=== PATIENT | female | born 1955 | race Caucasian/White ===

== ENCOUNTER 2018-11-30 10:35 | Inpatient (IN) | payer OTHER ==
[~2018-11-30] VITALS: Ht 165.1 cm; Wt 61.4 kg
[2018-11-30 11:36] LABS: Source, Urine Catheter
[2018-11-30 11:39] LABS: Appearance, Urine Cloudy (Clear); Blood, Urine 4+ (Neg); Color, Urine Yellow (P-Yellow); Glucose Qualitative, Urine Neg (Neg); Ketones, Urine 4+ (Neg); Leukocyte Esterase, Urine 1+ (Neg); Nitrite, Urine Neg (Neg); Protein, Urine 2+ (Neg); Specific Gravity, Urine 1.025 (1.003-1.022); Urobilinogen, Urine 3+ (Normal)
[2018-11-30 11:58] LABS: BASOPHILS ABSOLUTE AUTO 0.02 K/mm3 (0.00-0.23); BASOPHILS PERCENT AUTO 0 % (0-2); EOSINOPHILS PERCENT AUTO 0 % (0-6); Hematocrit 39.1 % (33.0-51.0); Hemoglobin 13.1 g/dL (11.5-16.0); IMMATURE GRAN ABSOLUTE AUTO 0.04 K/mm3 (0.00-0.10); IMMATURE GRAN PERCENT AUTO 0 % (0-1); LYMPHOCYTES ABSOLUTE AUTO 0.66 K/mm3 (0.84-5.20); LYMPHOCYTES PERCENT AUTO 7 % (21-46); MONOCYTES ABSOLUTE AUTO 0.62 K/mm3 (0.16-1.47); MONOCYTES PERCENT AUTO 7 % (4-13); Mean Corpuscular HGB 29.4 pg (26.0-34.0); Mean Corpuscular HGB Conc 33.5 g/dL (31.5-36.5); Mean Corpuscular Volume 88 fL (80-100); Mean Platelet Volume 11.7 fL (9.1-12.4); NEUTROPHILS ABSOLUTE AUTO 8.04 K/mm3 (1.96-9.15); NEUTROPHILS PERCENT AUTO 86 % (41-73); Platelet Count 214 K/mm3 (150-400); RDW Coefficient Variation 13.2 % (11.7-14.2); RDW Standard Deviation 42.5 fL (35.1-46.3); Red Blood Cell Count 4.46 M/mm3 (3.80-5.20); White Blood Cell Count 9.38 K/mm3 (4.00-11.30)
[2018-11-30 12:01] LABS: Bilirubin, Urine 1+ (Neg)
[2018-11-30 12:02] LABS: Alanine Aminotransfer (ALT/SGP 42 U/L (12-78); Albumin, Blood 3.3 g/dL (3.4-5.0); Albumin/Globulin Ratio 0.8 (0.8-1.8); Alk Phos 72 U/L (50-136); Anion Gap 9 mmol/L (6-16); Aspartate Aminotrans (AST/SGOT 94 U/L (12-37); Blood Urea Nitrogen 15 mg/dL (8-24); Bun/Creatinine Ratio 18.6 (12.0-20.0); CO2, Blood 29 mmol/L (21-32); Calcium, Blood 9.1 mg/dL (8.5-10.1); Chloride, Blood 102 mmol/L (98-108); Creatinine, Blood 0.81 mg/dL (0.40-1.00); Globulin, Blood 4.1 g/dL (2.2-4.0); Glomerular Filtration Rate >60 (60-); Glucose, Blood 134 mg/dL (70-99); Potassium, Blood 2.8 mmol/L (3.5-5.5); Sodium, Blood 140 mmol/L (136-145); Total Protein, Blood 7.4 g/dL (6.4-8.2)
[2018-11-30 12:03] LABS: Bacteria Few /hpf; Squamous Epithelial Cells Few /hpf (Few)
[2018-11-30 12:04] LABS: Calcium Oxalate Crystals Few /hpf; Mucus Heavy (0-Heavy)
[2018-11-30 14:14] LABS: C-REACTIVE PROTEIN, EXT RANGE 9.67 mg/dL (0.000-0.300); Magnesium, Blood 2.2 mg/dL (1.6-2.4)
[2018-11-30 14:35] LABS: Thyroid Stimulating Hormone 2.78 uIU/mL (0.360-4.800)
--- NOTE | 2018-11-30 17:35 | NUR ---
PT AOX1 RESPONDING BY SMILING BIG AND LAUGHING LIKE A CHILD. WORDS ARE GARBLED AND MINIMAL. PT HAS BRUISING OVER BODY MOST LIKELY RELATED TO FALLS AT HOME PER . UNABLE TO REALLY ASSESS MOVEMENT PT DOES NOT REALLY RESPOND IF ASKED TO RAISE AND ARM OR LEG. PT DRIFTS OF TO SLEEP SMALL NAPS. SHE ALSO ONCE IN AWHILE REACHES UP IF SHE IS DOING SOMETHING ABOVE HER. PT RESTING AT THIS TIME BED ALARM IN PLACE.
--- NOTE | 2018-12-01 04:29 | NUR ---
SHIFT SUMMARY PT ALERT TO SELF, SLEPT WELL. INCONTINENT OF URINE. IVF'S INFUSING PER PUMP WITHOUT DIFFICULTY. NO SIGNS OF PAIN NOTED. WILL CONTINUE TO MONITOR.
[2018-12-01 05:07] LABS: BASOPHILS ABSOLUTE AUTO 0.03 K/mm3 (0.00-0.23); BASOPHILS PERCENT AUTO 0 % (0-2); EOSINOPHILS ABSOLUTE AUTO 0.07 K/mm3 (0.00-0.68); EOSINOPHILS PERCENT AUTO 1 % (0-6); Hematocrit 34.5 % (33.0-51.0); Hemoglobin 11.6 g/dL (11.5-16.0); IMMATURE GRAN ABSOLUTE AUTO 0.01 K/mm3 (0.00-0.10); IMMATURE GRAN PERCENT AUTO 0 % (0-1); LYMPHOCYTES ABSOLUTE AUTO 1.51 K/mm3 (0.84-5.20); LYMPHOCYTES PERCENT AUTO 17 % (21-46); MONOCYTES ABSOLUTE AUTO 0.77 K/mm3 (0.16-1.47); MONOCYTES PERCENT AUTO 9 % (4-13); Mean Corpuscular HGB 29.5 pg (26.0-34.0); Mean Corpuscular HGB Conc 33.6 g/dL (31.5-36.5); Mean Corpuscular Volume 88 fL (80-100); Mean Platelet Volume 11.4 fL (9.1-12.4); NEUTROPHILS PERCENT AUTO 73 % (41-73); Platelet Count 194 K/mm3 (150-400); RDW Coefficient Variation 13.2 % (11.7-14.2); RDW Standard Deviation 42.7 fL (35.1-46.3); Red Blood Cell Count 3.93 M/mm3 (3.80-5.20); White Blood Cell Count 8.79 K/mm3 (4.00-11.30)
[2018-12-01 05:37] LABS: Alanine Aminotransfer (ALT/SGP 38 U/L (12-78); Albumin, Blood 2.7 g/dL (3.4-5.0); Albumin/Globulin Ratio 0.8 (0.8-1.8); Alk Phos 60 U/L (50-136); Anion Gap 11 mmol/L (6-16); Aspartate Aminotrans (AST/SGOT 78 U/L (12-37); Bilirubin, Total 1.1 mg/dL (0.1-1.0); Blood Urea Nitrogen 8 mg/dL (8-24); CO2, Blood 25 mmol/L (21-32); Calcium, Blood 7.9 mg/dL (8.5-10.1); Chloride, Blood 107 mmol/L (98-108); Creatinine, Blood 0.66 mg/dL (0.40-1.00); Globulin, Blood 3.3 g/dL (2.2-4.0); Glomerular Filtration Rate >60 (60-); Glucose, Blood 88 mg/dL (70-99); Potassium, Blood 2.9 mmol/L (3.5-5.5); Sodium, Blood 143 mmol/L (136-145)
--- NOTE | 2018-12-01 09:32 | NUR ---
DC IV THE 18G IV I DC'D WAS IN THE JERI NOT THE LEFT.
--- NOTE | 2018-12-01 18:02 | NUR ---
AT BEDSIDE FOR MOST OF THIS SHIFT. PATIENT IS ORIENTED TO SELF AND FAMILY ONLY, CHILD LIKE AND GIGGLES WHEN ASKED QUESTIONS. UNABLE TO FOLLOW COMMANDS. MULTIPLE BRUISES TO ALL EXTREMITIES FROM RECENT FALLS. POWERGLIDE PLACED TODAY IN L UPPER EXTREMITIY. NS WITH 20K RUNNING AT 125ML/HR. ANXIOUS AND TEARFUL THIS EVENING AFTER FAMILY LEFT. VSS, ON RA. INCONTINENT OF URINE AND BOWEL. PLAN TO MOVE PATIENT TO ROOM 350, MESSAGE LEFT ON ANSWERING MACHINE FOR ECHO.
--- NOTE | 2018-12-02 01:15 | NUR ---
UPON TURNING AND CHANGING PT SHE BECAME ANXIOUS AND TEARFUL SAYING OUCH. SHE WAS NOTED TO BE HOLDING HER L.FOREARM AND ELBOW BUT ALSO SQUEALED WHEN STAFF TOUCHED HER L.HIP WHICH WAS NOTABLY BRUISED. ALERTED AND FENTANYL 25-50 MCQ Q4H PRN RX'D WELL XRAYS OF L.HIP, L.FA AND L.ELBOW. PLAN TO MEDICATE PRN.
--- NOTE | 2018-12-02 02:30 | NUR ---
ATTEMPTED TO GIVE PT PRN PAIN MEDS A FEW TIMES BUT SHE HAS BEEN SLEEPING SOUNDLY, SNORING AND APPEARS COMFORTABLE W/O S/S DISTRES. PT PREVIOUSLY WAS AWAKE AND WHIMPERING BUT WOULD DENY NEEDS AND GIGGLE WHEN STAFF WOULD INQUIRE HOW SHE WAS DOING. SHE SEEMS TO SLEEP BETTER ON HER R.SIDE WHICH LEADS ME TO BELIEVE L.SIDE CAUSES HER DISTRESS. XRAYS TO BE DONE THIS AM.
--- NOTE | 2018-12-02 05:08 | NUR ---
SUMMARY: PT CONFUSED, MOSTLY NONVERBAL, ANSWERS SOME YES/NO Q'S AND SAYS SOME SHORT PHRASES IE "THANKYOU". SHE OCCASIONALLY WAS HEARD WHIMPERING AND SOUNDED TEARFUL BUT PT WOULD GIGGLE AND DENY NEEDS UPON STAFF ENTERING ROOM. MOUTH CARE PROVIDED AND TURN SCHEDULE MAINTAINED. PT INCONTINENT OF URINE AND SMALL BM THIS SHIFT W/ATTENDS CHANGED PRN. PT NOTED TO BE VERY STIFF/RIGID AND SEEMED RESISTANT AND PAINFUL WHEN POSITIONED ON HER L.SIDE. BRUISES NOTED AND PT GRASPED L.ELBOW/FOREARM WHENEVER TURNED THAT DIRECTION. XRAYS HAVE BEEN RX'D OF THE L.HIP, ELBOW AND FOREARM THIS AM RESULT. PRN FENTANYL WAS ALSO RX'D BUT PT HAS NOT REQUIRED IT D/T NOW SLEEPING COMFORTABLY W/O S/S DISTRESS. STAFF HELD 2100 ZYPREXA D/T HAVING RECIEVED 1ST DOSE AT 1912 AND HASN'T NEEDED IT SINCE. NS W/20 KCL INFUSES AT 125 ML/HR TO [place] POWERGLIDE. JERI CONT'S SWOLLEN FROM IV INFILRATION ON DAY SHIFT. NO ACUTE CHANGES, VSS/AFEBRILE. WILL MONITOR AND REPORT TO DAY RN.
--- NOTE | 2018-12-02 08:44 | NUR ---
PATIENT DID NOT EAT BREAKFAST THIS SHIFT DUE TO BEING NPO AT THIS TIME.
--- NOTE | 2018-12-02 08:58 | NUR ---
PT CRYING THIS AM THE PT IS AWAKE CRYING MOANS IF SHE IS IN PAIN, GAVE FENTENYL 25MG FOR PAIN, PT IS NPO THIS AM AWAITING SWALLOW EVAL, MOUTH CARE GIVEN WITH AM MED
--- NOTE | 2018-12-02 15:55 | NUR ---
PT ALERT CONFUSED, BED REST AT THIS TIME, THE PT THIS AM WAS CRYING AND MOANING THOUGH SHE WAS IN PAIN, WHEN THE PT WAS TRANSFERED FROM [facility] TO [facility] THIS AM FOR X-RAY THE PT GRIMICED AND MOANED IF SHE WAS IN PAIN, AFTER COMING BACK TO THE ROOM THE PT STARTED TO CRY HYSTERICALLY, FENTENLY 25 MCG AND THE SCHEDULED ZYPREXA WERE GIVEN THE PT SEEMED TO CALM AND THEN FALL ASLEEP, THE PT REMAIND DROWSY T/O THE DAY, MOUTH CARE WAS GIVEN T/O THE DAY THE PT IS A MOUTH BREATHER AND HER MOUTH WAS VERY DRY, 1300 AND 1700 ZYPREXA HELD DUE TO DROWSINESS, CALL LIGHT IN REACH, PT WAS CHANGED AND REPOSITIONED T/O THE DAY
--- NOTE | 2018-12-02 17:36 | NUR ---
PATIENT DID NOT EAT DINNER THIS SHIFT DUE TO BEING NPO AT THIS TIME.
--- NOTE | 2018-12-03 05:41 | NUR ---
SUMMARY: PT CONTINUED DROWSY AND SLEPT MOST OF SHIFT. HS SHELTON HELD D/T NOT APPEARING TO NEED MED. SHE HAS CHILDLIKE AFFECT W/LIMITED INTERACTION. SHE ANSWERS SOME YES/NO Q'S, HAS DENIED PAIN AND OCCASIONALLY GIGGLES IN RESPONSE TO QUESTIONS. SHE HAS WOKE UP A BIT MORE THIS MORNING AND SPECIFIED HER MOUTH FELT DRY. SHE IS A MOUTH BREATHER AND HAS SNORED RESPS AT TIMES. ORAL CARE PROVIDED T/O NOCTE. TURN SCHEDULE MAINTAINED AND PT HAD FREQ EPISODES OF URINARY INCONTINENCE W/SATURATION OF BED AND LINEN/ATTENDS CHANGED PRN. BUTTOCKS REMAINS PINK W/OPEN AREAS OF SKIN WEAR BLISTERS HAVE POPPED. CREAM APPLIED AND ATTEMPTED TO KEEP PT DRY. NO ACUTE CHNGES, VSS/AFEBRILE. WILL MONITOR AND REPORT TO DAY RN.
[2018-12-03 06:49] LABS: Anion Gap 10 mmol/L (6-16); Blood Urea Nitrogen 4 mg/dL (8-24); Bun/Creatinine Ratio 6.7 (12.0-20.0); CO2, Blood 27 mmol/L (21-32); Calcium, Blood 8.1 mg/dL (8.5-10.1); Chloride, Blood 103 mmol/L (98-108); Creatinine, Blood 0.59 mg/dL (0.40-1.00); Glomerular Filtration Rate >60 (60-); Glucose, Blood 92 mg/dL (70-99); Potassium, Blood 3.2 mmol/L (3.5-5.5); Sodium, Blood 140 mmol/L (136-145)
[2018-12-03 09:21] LABS: RPR Non-reactive (Nonreactive)
[2018-12-03 11:28] LABS: Antinuclear Antibody Screen Negative (Negative)
[2018-12-03 12:08] LABS: ANTI-DSDNA ANTIBODIES <1 IU/mL (0-9); RNP ANTIBODIES <0.2 AI (0.0-0.9); SJOGREN'S ANTI-SS-A <0.2 AI (0.0-0.9); SJOGREN'S ANTI-SS-B <0.2 AI (0.0-0.9); SMITH ANTIBODIES <0.2 AI (0.0-0.9)
--- NOTE | 2018-12-03 19:12 | NUR ---
NO ACUTE CHANGES NOTED THIS SHIFT. PT AWAKE THIS MORNING WHEN AT BEDSIDE AND SHE DOES ATTEMPT TO SPEAK WITH HIM. SPEECH VERY SLURRED AND DIFFICULT TO UNDERSTAND. SHE IS FILIBERTO TO ANSWER YES AND NO QUESTIONS. WILL ONTINUE TO MONITOR AND REPORT TO ONCOMING RN
--- NOTE | 2018-12-04 05:35 | NUR ---
VSS, ALERT, ORIENTED TO SELF, GIBBERISH MOST OF THE TIME BUT CAN SAY "YES"/"NO", EXCORIATED R BUTT CHEEK, MEPLEX PLACED LAST NOC, POWERGLIDE L UA, NS w/20 MEQ K AT 125 ML/HR, INCONT, TURN Q 2 HRS, BRUISES FROM FREQ FALLS, COMBATIVE WITH CAREGIVERS AT TIMES, RIGID ARMS ARE TRYING TO BECOME CONTRACTED, PLACEMENT ISSUE
--- NOTE | 2018-12-04 11:31 | NUR ---
ORAL CARE COMPLETED, PT TOLERATED WELL
[2018-12-04 13:08] LABS: COMPLEMENT C3, SERUM 74 mg/dL (82-167); COMPLEMENT C4, SERUM 14 mg/dL (14-44)
--- NOTE | 2018-12-04 19:30 | NUR ---
PT REMAINS MOSTLY NON VERBAL, SPEECH EXTREMELY DIFFICULT TO UNDERSTAND WHEN SHE DOES ATTEMPT TO TALK. PT TURNED FROM SIDE TO SIDE Q2 HOURS, SQUIRMS AND MOVES OFF HER SIDE AND RETURNS TO HER BACK. NO S/S OF PAIN WHEN RESTING. AT BEDSIDE THIS AFTERNOON AND SPENT TIME TALKING WITH DR RAMON. PALLIATIVE CARE WISHES TO BE NOTIFIED WHEN HE COMES IN TOMORROW. WILL CONTINUE TO MONITOR AND REPORT TO ONCOMING RN.
--- NOTE | 2018-12-05 03:05 | NUR ---
63 YEAR OLD FAMALE ADMITTED WITH ENCEPHALOPATHY HAS ADVANCED DEMENTIA CONFUSED AND UNABLE TO SPEAK. UNCONTINENT OF LARGE AMTS OF URINE ON IV FLUIDS AND INCONT OF LARGE HARD BM. NPO DUE TO NPO STATUS. STIFF AND RIGID AND SLIDS DOWN IN BED MULTIPLE TIMES DESPITE PILLOWS FOOT OF BED UP ETC. HAS OPEN AREA ON RT BUTTOCKS FROM CONSTANT MOISTURE. COVERED WITH MOISURIZER DRY FOAM PROTECTIVE DRESSING. ORAL CARE PROVIDED. ROOM AIR WITH FALL PRECAUTIONS IN PLACE. 2 ASSIST FOR CARES AND BED POSITIONING.
--- NOTE | 2018-12-05 14:12 | NUR ---
Reviewed notes, spoke with nursing. Pt is laying in bed, loud snoring with secretions noted. Javier, nurse, reports that Dr. Peter is actually ordering a scopolamine patch to help with secretions. Family has not been in today. Javier will call when family arrives. Will discuss comfort care vs. PEG tube placement with them.
--- NOTE | 2018-12-05 15:55 | NUR ---
VERIFIED CODE STATUS WITH AGUS MICHELLE. PURPLE WRIST BAND PLACED ON RIGHT WRIST.
--- NOTE | 2018-12-05 15:56 | NUR ---
FLAG FOOTBALL COACH REPORTED VIEW SCORE OF 6. PT IS LATHARGIC AND PALE. PT DID RESPOND TO REPOSITIONING. CHARGE NURSE, DOMINGA AT BEDSIDE. PALLIATIVE CARE NURSE, CHAUNCEY CALLED REGARDING CHANGE IN CODE STATUS. CHAUNCEY CALLED AND SPOKE TO SPOUSE WHO AGREED TO CHANGE TO COMFORT CARE. DR RAMON ALSO NOTIFIED AND SEEN PT AT BEDSIDE. TYLENOL SUPPOSITORY GIVEN FOR ELEVATED TEMPERATURE.
--- NOTE | 2018-12-05 16:38 | NUR ---
ATTEMPTED TO CHANGE POWERGLIDE DRESSING HOWEVER PT TO STIFF AND RESISTING MOVING ARM. DRESSING NOT CHANGED AT THIS TIME. RECEPTION CENTRE MANAGER NOTIFIED.
--- NOTE | 2018-12-05 17:36 | NUR ---
THE PT'S CODE STATUS HAS BEEN CHANGED TO DNR. THE PT WAS PLACED ON COMFORT CARE THIS AFTERNOON. DUE TO INCONTINENCE AND FOR COMFORT, A FERRIS CATHETER HAS BEEN PLACED THIS EVENING. HEEL PROTECTORS ARE IN PLACE. PILLOWS ARE FLOATING THE PT ABOVE THE BED, REPOSITIONING Q2H. SUCTIONING HAS BEEN DONE NEEDED AND BEEN DONE OFTEN. SECRETIONS HAVE BEEN TREATED PER EMAR. PICTURES OF THE PT'S WOUNDS HAVE BEEN TAKEN AND IN THE CHART. NO VISITORS TODAY. WILL CONTINUE TO MONITOR THE PT.
[2018-12-05 17:37] LABS: Source, Urine Catheter
[2018-12-05 17:45] LABS: Bilirubin, Urine Neg (Neg); Blood, Urine 3+ (Neg); Glucose Qualitative, Urine Neg (Neg); Ketones, Urine 4+ (Neg); Leukocyte Esterase, Urine Neg (Neg); Nitrite, Urine Neg (Neg); Protein, Urine Neg (Neg); Specific Gravity, Urine 1.015 (1.003-1.022); Urobilinogen, Urine 1+ (Normal)
[2018-12-05 17:54] LABS: Appearance, Urine Clear (Clear); Color, Urine Yellow (P-Yellow)
--- NOTE | 2018-12-05 17:54 | NUR ---
Per chart review, Mrs. Tipton is Adventism. No family present at time of vist. I provided prayer and comfort through touch. Pt is non-responsive. I will remain available to family.
[2018-12-05 17:56] LABS: Hyaline Casts 0-2 /lpf (0-2); White Blood Cells, Urine 0-2 /hpf (0-5)
[2018-12-05 17:57] LABS: Bacteria Few /hpf; Squamous Epithelial Cells Not Seen /hpf (Few)
--- NOTE | 2018-12-06 06:19 | NUR ---
SHIFT SUMMARY PT TURNED EVERY 2 HOURS DURING THE NIGHT. BRIEF CLEAN WITH EACH CHECK. ORAL CARES AND SUCTION DONE FREQUENTLY. THIS AM PT WITH MORE SECRETIONS NOTED, UNABLE TO GET DOWN DEEP ENOUGH WITH SUCTION CATHETER. ATROPINE DROPS GIVEN FOR SECRETIONS AND ROXANOL 10 MG GIVEN FOR PAIN. PT SHAKING FISTS AND ARMS THIS AM ALSO OPENING EYES. WILL CONTINUE TO MONITOR.
--- NOTE | 2018-12-06 07:42 | NUR ---
SECRETIONS SUCTIONED Q2H AND NEEDED. PT ALSEEP. DRN WRISTBAND IN PLACE ON RIGHT WRIST. LUNG SOUNDS ARE COARSE AND RHONCHI THROUGHOUT. SECRETIONS ARE THICK AND FROTHY. FERRIS CATHETER IN PLACE AND DRAINING EFFECIENTLY. URINE IS CLOUDY AND ASHLEY IN COLOR. PT IS POSITIONED ON PILLOWS FOR COMFORT. POWERGLIDE IS PATENT AND SALINE LOCKED.
--- NOTE | 2018-12-06 09:58 | NUR ---
Pt has some dyspnea, slight furrowed brow noted. Reviewed with nursing. and family to visit today. Discussed with nurse, Yanet. Reviewed comfort medications. Efforts to optimize patient's comfort today with medication. Recommend hold zyprexa, give low dose of ativan and moderate dose of roxanol to relieve dyspnea. Pt is open-mouth breathing, respirations over 30 at this time. Turn q 2 hours for comfort, patient does have a becker draining slightly darker yellow urine, appears clear. Give follow up dose of roxanol if dyspnea not improved after 30 minutes. Discussed Usman Flanagan with Yanet. Advised that this service, that provides volunteers to sit with dying patients that do not have family, can be set up in advance with Usman Flanagan. This can be set up today if patient remains alone. and daughter to visit today, but so far no family in the room. Will remain available.
--- NOTE | 2018-12-06 16:48 | NUR ---
PT MOVED TO ROOM 304. REPORT GIVEN TO RN. PT'S SPOUSE CALLED, LEFT A VOICEMAIL EXPLAINING THE PT WAS MOVED TO A QUIETER AREA AND TO ROOM 304. THE PT WAS TURNED Q2H. SECRETIONS TREATED PER EMAR, WITH GREAT PROGRESS. NO SIGNS OF ANXIETY, TROUBLED BREATHING OR PAIN SINCE TREATED PER EMAR THIS MORNING.
--- NOTE | 2018-12-06 18:36 | NUR ---
No family present at time of visit. Mrs. Tipton was non-responsive. Breaths even and unlabored. Sat bedside her, holding her hand, and gave verbal assurance of love and completion. Nuclear Equipment Design Engineer services will remain available.
--- NOTE | 2018-12-06 21:33 | NUR ---
REPORT TAKEN FROM GERI RN. PT RESTING COMFORTABLY. WILL CONTINUE TO MONITOR.
--- NOTE | 2018-12-07 05:03 | NUR ---
SHIFT SUMMARY THERE HAVE BEEN NO ACUTE CHANGES. PT REMAINS UNRESPONSIVE AND HAS SLEPT FOR THE DURATION OF SHIFT. PT RESP DO INCREASE WITH REPOSITIONING, AND SHE DOES SEEM TO BECOME UNCOMFORTABLE WITH REPOSITIONING. ROXANOL GIVEN X2 PER EMAR ORDERS. NO FAMILY IN TO SEE PT THIS SHIFT. SNORE LIKE RESPIRATIONS, ON RA. FERRIS IN PLACE, PATENT, SHE IS STILL PRODUCING URINE. COMFORT ASSESSED T/O SHIFT. WILL CONTINUE TO MONITOR AND REPORT TO ONCOMING RN.
--- NOTE | 2018-12-07 07:14 | NUR ---
ASSUMED CARE OF PT- RECIEVED REPORT FROM NIGHT AGUS TEJEDA. PER REPORT PT HAS STARTED TO HAVE APNIC PERIODS IN BREATHING. PT COMFORT CARE Q2 TURN, FERRIS IN PLACE MINIMAL OUTPUT, PT HAS HAD NO PO INPUT IN 2-3 DAYS. PT NON-RESPONSIVE TO STAFF, MEDICATED MORE FREQUENTLY WITH ROXANOL LAST NIGHT PER REPORT D/T AIR HUNGER. WILL CTM.
--- NOTE | 2018-12-07 09:12 | NUR ---
Spiritual care visit conducted. Patient was unresponsive and experiencing labored breathing as I entered the room. I introduced myself and stated what department I was from. I provided a calming presence, scripture reading, prayer and soft therapeutic guitar music for patient and will remain available to staff throughout the day.
--- NOTE | 2018-12-07 09:42 | NUR ---
PT SLEEPING SOUNDLY NO S&S OF DISTRESS NOTED NO S&S OF PAIN. RESP STILL HAVING PAUSES SPOKE TO NURSING SHINGLE CATCHER TO SEE IF PASTORAL CARE COULD COME SEE THE PT.
--- NOTE | 2018-12-07 10:27 | NUR ---
Pt is expriencing dyspnea, also seems very tense. Recommend ativan and roxanol. Collaborated with nurse, Sara, to come up with a plan of care for today. Frequent rounding, assessment for pain/dyspnea/agitation/anxiety. Turn q 2 hours. Pt has terminal truncal fever, recommend Tylenol suppository next time she is repositioned. Pt appears to be in last stages of end of life, actively dying. Family has not been in to see patient: They have told noc shift that they would like to be notified when she passes away. Will remain available.
--- NOTE | 2018-12-07 10:27 | NUR ---
PT ROLED AND VIJAYA CARE DONE, ATTENDS CHANGE AND REPOSIOTION; NO BED BATH D/T PT CONDITION. SPOKE TO PALLITIVE CARE RN CHAUNCEY, PT SEEMS TO HAVE TRANSITIONED.
--- NOTE | 2018-12-07 10:30 | NUR ---
PT APNIC PERIODS HAVE INCREASED IN FREQUEBNCY AND LENGTH. PT APPEARS O E HAVING AIR HUNER AND A TRUNKAL FEVER, WILL MEDICATE WITH TYLENOL AT NEXT REPOSITION. REMOVED BLANETS DOWN TO SHEET AND MEDICATED WITH 10MG ROXANOL AND PO ATIVAN 1MG. APNIC PERIODS LASTING 15 SECONDS ON AVERAGE. WILL CTM
--- NOTE | 2018-12-07 12:44 | NUR ---
*LATE ENTRY* 1155 PT MEDICATED WITH 10MG ROXANOL SL. PT RESP SEEM IRREGULAR AND MORE LABORED. MEDICATED WITH ROXANOL SAT AND HELD PT HAND, CMA OR LPN PRESENT IN THE ROOM WITH THE PT WELL OPAL ELOISA HAS NOT ARRIVED YET. PT HAD SEVERAL PAUSES IN RESPIRATIONS AND STAFF STAYED IN THE ROOM. 1200- PT NO LONGER BREATHING, DR FLYNN ARRIVED TO ROUND ON THE PT AND NO RESP OR HEARTBEAT AUDIBLE. TIME OF 1200. CONTACTED CHARGE NURSE ELIZABETH AND PALLIATIVE CARE RN CHAUNCEY TO ASSIST WITH FINAL WISHS AND NOTIFICATIONS.
--- NOTE | 2018-12-07 14:55 | NUR ---
pt passed in to see patient. Body donation papers sent in pt to [facility] for body donation.
== END 2018-12-07 14:31 | DRG 57 ==
LOC: ER 10:35 → MEDS 13:31 → ENPENDDIS 12-06 07:13 → MEDS 12-06 16:50
PROVIDERS: Emergency Medicine; ADMIT Internal Medicine
DX: G31.83 Neurocognitive disorder with Lewy bodies (principal); G93.40 Encephalopathy, unspecified; E46 Unspecified protein-calorie malnutrition; R62.7 Adult failure to thrive; Z51.5 Encounter for palliative care; E87.6 Hypokalemia; F03.90 Unspecified dementia, unspecified severity, without behavioral disturbance, psychotic disturbance, mood disturbance, and anxiety; R53.1 Weakness; R13.10 Dysphagia, unspecified; R58 Hemorrhage, not elsewhere classified; F02.80 Dementia in other diseases classified elsewhere, unspecified severity, without behavioral disturbance, psychotic disturbance, mood disturbance, and anxiety; E86.0 Dehydration; S00.83XA Contusion of other part of head, initial encounter; W19.XXXA Unspecified fall, initial encounter; Z91.81 History of falling
CPT/HCPCS: 36415; 70450; 71045; 73030; 73070; 73090; 73502; 80048; 80053; 81001; 82607; 82746; 83690; 83735; 84443; 85025; 85651; 86038; 86140; 86160; 86225; 86235; 86592; 87086; 92526; 92610; 93005; 93010; 96361; 96365; 99285-25; J1650; J2060; J3010; J3480; J7030; P9612